=== PATIENT | male | born 1990 | race Caucasian/White ===

== ENCOUNTER 2017-03-26 20:46 | Emergency (ER) | payer OTHER ==
--- NOTE | 2017-03-26 23:12 | ED ORDER SUMMARY ---
..... Patient: MARCELO ALEGRIA OrderSheet [facility] VisitID: [id number] [address] [place] [address] 26y, M Registration Date/Time: 03/26/2017 ORDER SHEET Weight: 95.2 kg Allergies: No Known Drug Allergy GENERAL ORDERS: Foot 3V Left Urgent (22:07 03/26/2017 Brett PATRICK) (Ack 22:12 PWeiler ER Tech1) (22:22 MCampbell) CBC w Diff Urgent (22:07 03/26/2017 Brett PATRICK) (Ack 22:12 PWeiler ER Tech1) (23:12 PWeiler ER Tech1) CMP Urgent (22:07 03/26/2017 Brett PATRICK) (Ack 22:12 PWeiler ER Tech1) (23:12 PWeiler ER Tech1) ESR Urgent (22:07 03/26/2017 Brett PATRICK) (Ack 22:12 PWeiler ER Tech1) (23:12 PWeiler ER Tech1) Uric Acid Urgent (22:07 03/26/2017 Brett PATRICK) (Ack 22:12 PWeiler ER Tech1) (23:12 PWeiler ER Tech1) Post-op Shoe (23:11 03/26/2017 Brett PATRICK) (23:21 BISIowlavelle R.N.) MEDICATION ORDERS: IV FLUIDS: ORDER SHEET NOTES: [Electronically signed by Cheyenne Stafford R.N. (23:23 03/26/2017)] [Electronically signed by Damián Gerber MD (23:39 03/26/2017)] [Electronically locked/signed by Cheyenne Stafford R.N. (23:23 03/26/2017)]
--- NOTE | 2017-03-26 23:12 | ED ORDER SUMMARY ---
..... Patient: MARCELO ALEGRIA OrderSheet [facility] VisitID: [id number] [address] [place] [address] 26y, M Registration Date/Time: 03/26/2017 ORDER SHEET Weight: 95.2 kg Allergies: No Known Drug Allergy GENERAL ORDERS: Foot 3V Left Urgent (22:07 03/26/2017 Brett PATRICK) (Ack 22:12 PWeiler ER Tech1) (22:22 MCampbell) CBC w Diff Urgent (22:07 03/26/2017 Brett PATRICK) (Ack 22:12 PWeiler ER Tech1) (23:12 PWeiler ER Tech1) CMP Urgent (22:07 03/26/2017 Brett PATRICK) (Ack 22:12 PWeiler ER Tech1) (23:12 PWeiler ER Tech1) ESR Urgent (22:07 03/26/2017 Brett PATRICK) (Ack 22:12 PWeiler ER Tech1) (23:12 PWeiler ER Tech1) Uric Acid Urgent (22:07 03/26/2017 Brett PATRICK) (Ack 22:12 PWeiler ER Tech1) (23:12 PWeiler ER Tech1) Post-op Shoe (23:11 03/26/2017 Brett PATRICK) (23:21 BISIowlavelle R.N.) MEDICATION ORDERS: IV FLUIDS: ORDER SHEET NOTES: [Electronically signed by Cheyenne Stafford R.N. (23:23 03/26/2017)] [Electronically signed by Damián Gerber MD (23:39 03/26/2017)] [Electronically locked/signed by Cheyenne Stafford R.N. (23:23 03/26/2017)]
--- NOTE | 2017-03-26 23:12 | ED CLINICAL REPORT ---
Clinical Report - Physicians/Mid Levels [facility] [address] [place] [address] 03/26/2017 20:48 Patient: MARCELO ALEGRIA Time Seen: 21:01. Arrived- By private vehicle. Historian- patient. HISTORY OF PRESENT ILLNESS Chief Complaint: LOWER EXTREMITY PAIN. Severity is described as being severe. It has become recently worse. The quality is noted to be burning and "pain". This started several days ago and is still present and worsening. It was gradual in onset and has been constant. Symptoms located in the area of the left foot. The patient has not had redness. He has had severe swelling of the left foot. He has had severe difficulty walking. Patient denies an injury. REVIEW OF SYSTEMS No chills, fever, sweats, calf pain or chest pain. No cough, difficulty breathing, pedal edema, palpitations or abdominal pain. No constipation, diarrhea, nausea, vomiting or urinary problems. All systems otherwise negative, except as recorded above. SOCIAL HISTORY Current every day light tobacco smoker (cigarette)- less than 1/2 a pack per day. Regular alcohol use. History of drug use: marijuana. FAMILY HISTORY Denies family medical history. ADDITIONAL NOTES The nursing notes have been reviewed. PHYSICAL EXAM Vital Signs: 03/26/2017 20:52 BP: 119/68. HR: 87. RR: 16. O2 saturation: 99%. Temp: 97.5 F. Pain level now: 8/10. Have been reviewed. Appearance: Alert. Eyes: Pupils equal, round and reactive to light. ENT: Pharynx normal. Neck: Neck supple. CVS: Normal heart rate and rhythm. Heart sounds normal. Respiratory: No respiratory distress. Breath sounds normal. Abdomen: Soft and nontender. No organomegaly. Back: Normal inspection. Skin: Skin warm and dry. Normal skin color. Normal skin turgor. Extremities: Left foot: mild erythema and swelling and severe tenderness of the plantar lateral aspect of the foot. Limited weight bearing secondary to pain. Neurovascular intact distally. Extremities otherwise negative. Gait: Gait not tested due to pain. LABS, X-RAYS, AND EKG X-Rays: Left foot negative. The X-rays were independently viewed by me. Laboratory Tests: CBC w Diff: (CHIKI: 03/26/2017 22:17) ( MsgRcvd 03/26/2017 22:56) Final results Test Result Flag Units (Reference) WHITE BLOOD COUNT 7.4 K/uL (4.5-11.5) RED BLOOD COUNT 4.79 M/uL (4.50-5.90) HEMOGLOBIN 14.5 gm/dL (13.5-17.5) HEMATOCRIT 42.5 % (41.0-53.0) MEAN CELL VOLUME 89 fL (80-100) MEAN CORPUSCULAR HGB 30 pg (26-34) MEAN CORPUSCULAR HGB CONC 34 g/dL (31-37) RED CELL DISTRIBUTION WIDTH 12.3 % (11.6-14.8) PLATELET COUNT 231 K/uL (150-400) NEUTROPHIL % 61.4 % (50-75) LYMPH % 29.9 % (25-40) MONO % 6.1 % (3-14) EOSINOPHIL % 2.2 % (0-4) BASOPHIL % 0.4 % (0-2) SED RATE WESTERGREN 4 mm/hr (0-15) CMP: (CHIKI: 03/26/2017 22:17) ( MsgRcvd 03/26/2017 22:49) Final results Test Result Flag Units (Reference) GLUCOSE 88 mg/dL (70-110) BUN 14 mg/dL (7-18) CREATININE 1.0 mg/dL (0.6-1.3) Estimated GFR >60 mL/min Estimated GFR- >60 mL/min Note: Persistent reduction over 3 months in eGFR<60 mL/min/1.73 m2 defines CKD. Patients with eGFR values>=60 mL/min/1.73 m2 may also have CKD if evidence ofpersistent proteinuria. Additional information may be foundat www.kidney.org. SODIUM 143 mmol/L (136-145) POTASSIUM 3.4 L mmol/L (3.5-5.1) CHLORIDE 105 mmol/L (98-107) CARBON DIOXIDE 26 mmol/L (21-32) CALCIUM 8.2 L mg/dL (8.5-10.1) TOTAL PROTEIN 6.8 g/dL (6.4-8.2) ALBUMIN 3.6 g/dL (3.3-5.0) BILIRUBIN, TOTAL 0.3 mg/dL (0.0-1.0) ALKALINE PHOSPHATASE 98 U/L (46-116) AST (SGOT) 22 U/L (15-37) ALT (SGPT) 33 U/L (12-78) URIC ACID 7.5 H mg/dL (2.6-7.2) . CLINICAL IMPRESSION Left foot pain. INSTRUCTIONS Elevate affected areas above chest level. Wear post-op shoe until released. No driving or operating machinery while taking medication. You may walk and bear weight as tolerated. Do not work until released. Warnings: Further evaluation is necessary. GENERAL WARNINGS: Return or contact your physician immediately if your condition worsens or changes unexpectedly, if not improving as expected, or if other problems arise. Prescription Medications: Toradol 10 mg tablets: Take 1 tablet orally every 6 hours as needed. Dispense fifteen (15). No refills. Substitution is permissible. Ultram 50 mg: take 1-2 orally every 6 hours as needed for pain. Dispense fifteen (15). Substitution is permissible. Understanding of the discharge instructions verbalized by patient. Follow-up with: Joe Saleh DPM, Podiatry, , [facility], [address] [place] [address], [address] [address]; Jatin Peña DPM, Podiatry, , [address] [place] [address]. [address], [place] [address] Follow up in five days. Call for the next available appointment. (Electronically signed by Damián Gerber MD 03/26/2017 23:39)
--- NOTE | 2017-03-26 23:12 | ED NURSING NOTES ---
Clinical Report - Nurses [facility] [address] [place] [address] 03/26/2017 20:48 Patient: MARCELO ALEGRIA TRIAGE Triage time 20:52. Acuity: LEVEL 4. Chief Complaint: LEFT LOWER EXTREMITY PAIN. --20:55 TonyaB, R.N. 20:52 03/26/17. BP: 119/68. HR: 87. RR: 16. O2 saturation: 99%. Temp: 97.5 F. Pain level now: 07/10. --20:55 TonyaB, R.N. Weight: 95.2 kg. Height/Length: 69 inches. BMI: 31. --20:54 TonyaB, R.N. Medications None. --23:22 TonyaB, R.N. Allergies No Known Drug Allergy. --23:22 TonyaB, R.N. History Arrived by private vehicle. Historian: patient. No injury occurred. This occurred (3 weeks). 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 PAST MEDICAL HX: Tetanus status: up-to-date. Immunizations: up-to-date. SOCIAL HX: Light tobacco smoker- less than 1/2 a pack per day. Regular alcohol use. History of occasional drug use: marijuana. No infectious disease exposure. SELF HARM ASSESSMENT: A self harm assessment was performed. The patient answered "no" to the question "Have you recently felt down, depressed, or hopeless?", "Have you noticed less interest or pleasure in doing things?", "Do you have thoughts of harming or killing yourself?", "Are you here because you tried to hurt yourself?", "Have you ever tried to hurt yourself before today?", "Have you recently had thoughts about harming or killing others?" and "Do you have any dangerous items in your possession?". FALL RISK ASSESSMENT: Fall risk assessment completed. No fall risk identified. NUTRITIONAL RISK ASSESSMENT: The nutritional risk assessment revealed no deficiencies. FUNCTIONAL ASSESSMENT: Functional assessment: no impairments noted. LEARNING NEEDS ASSESSMENT: The learning needs assessment revealed no barriers. ABUSE ASSESSMENT: Abuse assessment: The patient was asked "Do you feel safe in your home?". SKIN INTEGRITY ASSESSMENT: Skin integrity risk assessment completed. No skin integrity risk identified. --20:55 Cesar Da Silva ( pt states that his left foot and been painful and swelling off and on for a few weeks). --20:56 Cesar Da Silva Interventions ID band on patient. To treatment room. --20:55 Cesar Da Silva PHYSICAL ASSESSMENT Ambulatory to room. GENERAL / NEURO / PSYCH: Oriented X 4. Alert. Appears in no acute distress. EXTREMITIES: Extremity pulses are within normal limits. Neuro-vascular status intact to the extremity. Left big toe: tenderness, swelling and erythema. SKIN: Skin intact. Skin is warm and dry. --20:55 Aubrey Da Silva. NURSING PROGRESS NOTES Patient identifiers checked. Call light placed in reach. Side rails up x 1. Bed placed in lowest position. Brakes of bed on. --20:55 Cesar Da Silva DISPOSITION / DISCHARGE Departure time: 23:22. Condition at departure: improved. No learning barriers present. Discharge instructions provided and reviewed with the patient. Reviewed medication(s) side effects, precautions, dosing and course information. Prescription(s) given to the patient. Reviewed referral to a artificial flowers dyer. Activity restrictions (no driving) reviewed (while taking medication). Work note given. Patient verbalized understanding. Written instructions provided in Tajik. No warning instructions or treatment instructions. The patient was discharged by the physician. He was discharged home. He left the Emergency Department ambulatory and via private vehicle. Patient driving. FALL RISK ASSESSMENT: Fall risk assessment completed. No fall risk identified. --23:22 Cesar Da Silva 23:21 03/26/17. BP: deferred. HR: 18. RR: 74. O2 saturation: 99%. Temp: deferred. Pain level now: 01/10. --23:22 Cesar Da Silva Locked/Released at 03/26/2017 23:23 by Cesar Da Silva
--- NOTE | 2017-03-26 23:12 | ED NURSING NOTES ---
Clinical Report - Nurses [facility] [address] [place] [address] 03/26/2017 20:48 Patient: MARCELO ALEGRIA TRIAGE Triage time 20:52. Acuity: LEVEL 4. Chief Complaint: LEFT LOWER EXTREMITY PAIN. --20:55 TonyaB, R.N. 20:52 03/26/17. BP: 119/68. HR: 87. RR: 16. O2 saturation: 99%. Temp: 97.5 F. Pain level now: 07/10. --20:55 TonyaB, R.N. Weight: 95.2 kg. Height/Length: 69 inches. BMI: 31. --20:54 TonyaB, R.N. Medications None. --23:22 TonyaB, R.N. Allergies No Known Drug Allergy. --23:22 TonyaB, R.N. History Arrived by private vehicle. Historian: patient. No injury occurred. This occurred (3 weeks). 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 PAST MEDICAL HX: Tetanus status: up-to-date. Immunizations: up-to-date. SOCIAL HX: Light tobacco smoker- less than 1/2 a pack per day. Regular alcohol use. History of occasional drug use: marijuana. No infectious disease exposure. SELF HARM ASSESSMENT: A self harm assessment was performed. The patient answered "no" to the question "Have you recently felt down, depressed, or hopeless?", "Have you noticed less interest or pleasure in doing things?", "Do you have thoughts of harming or killing yourself?", "Are you here because you tried to hurt yourself?", "Have you ever tried to hurt yourself before today?", "Have you recently had thoughts about harming or killing others?" and "Do you have any dangerous items in your possession?". FALL RISK ASSESSMENT: Fall risk assessment completed. No fall risk identified. NUTRITIONAL RISK ASSESSMENT: The nutritional risk assessment revealed no deficiencies. FUNCTIONAL ASSESSMENT: Functional assessment: no impairments noted. LEARNING NEEDS ASSESSMENT: The learning needs assessment revealed no barriers. ABUSE ASSESSMENT: Abuse assessment: The patient was asked "Do you feel safe in your home?". SKIN INTEGRITY ASSESSMENT: Skin integrity risk assessment completed. No skin integrity risk identified. --20:55 Cesar Da Silva ( pt states that his left foot and been painful and swelling off and on for a few weeks). --20:56 Cesar Da Silva Interventions ID band on patient. To treatment room. --20:55 Cesar Da Silva PHYSICAL ASSESSMENT Ambulatory to room. GENERAL / NEURO / PSYCH: Oriented X 4. Alert. Appears in no acute distress. EXTREMITIES: Extremity pulses are within normal limits. Neuro-vascular status intact to the extremity. Left big toe: tenderness, swelling and erythema. SKIN: Skin intact. Skin is warm and dry. --20:55 Aubrey Da Silva. NURSING PROGRESS NOTES Patient identifiers checked. Call light placed in reach. Side rails up x 1. Bed placed in lowest position. Brakes of bed on. --20:55 Cesar Da Silva DISPOSITION / DISCHARGE Departure time: 23:22. Condition at departure: improved. No learning barriers present. Discharge instructions provided and reviewed with the patient. Reviewed medication(s) side effects, precautions, dosing and course information. Prescription(s) given to the patient. Reviewed referral to a group worker. Activity restrictions (no driving) reviewed (while taking medication). Work note given. Patient verbalized understanding. Written instructions provided in [place] Zealander. No warning instructions or treatment instructions. The patient was discharged by the physician. He was discharged home. He left the Emergency Department ambulatory and via private vehicle. Patient driving. FALL RISK ASSESSMENT: Fall risk assessment completed. No fall risk identified. --23:22 Cesar Da Silva 23:21 03/26/17. BP: deferred. HR: 18. RR: 74. O2 saturation: 99%. Temp: deferred. Pain level now: 01/10. --23:22 Cesar Da Silva Locked/Released at 03/26/2017 23:23 by Cesar Da Silva
--- NOTE | 2017-03-26 23:12 | ED CLINICAL REPORT ---
Clinical Report - Physicians/Mid Levels [facility] [address] [place] [address] 03/26/2017 20:48 Patient: MARCELO ALEGRIA Time Seen: 21:01. Arrived- By private vehicle. Historian- patient. HISTORY OF PRESENT ILLNESS Chief Complaint: LOWER EXTREMITY PAIN. Severity is described as being severe. It has become recently worse. The quality is noted to be burning and "pain". This started several days ago and is still present and worsening. It was gradual in onset and has been constant. Symptoms located in the area of the left foot. The patient has not had redness. He has had severe swelling of the left foot. He has had severe difficulty walking. Patient denies an injury. REVIEW OF SYSTEMS No chills, fever, sweats, calf pain or chest pain. No cough, difficulty breathing, pedal edema, palpitations or abdominal pain. No constipation, diarrhea, nausea, vomiting or urinary problems. All systems otherwise negative, except as recorded above. SOCIAL HISTORY Current every day light tobacco smoker (cigarette)- less than 1/2 a pack per day. Regular alcohol use. History of drug use: marijuana. FAMILY HISTORY Denies family medical history. ADDITIONAL NOTES The nursing notes have been reviewed. PHYSICAL EXAM Vital Signs: 03/26/2017 20:52 BP: 119/68. HR: 87. RR: 16. O2 saturation: 99%. Temp: 97.5 F. Pain level now: 8/10. Have been reviewed. Appearance: Alert. Eyes: Pupils equal, round and reactive to light. ENT: Pharynx normal. Neck: Neck supple. CVS: Normal heart rate and rhythm. Heart sounds normal. Respiratory: No respiratory distress. Breath sounds normal. Abdomen: Soft and nontender. No organomegaly. Back: Normal inspection. Skin: Skin warm and dry. Normal skin color. Normal skin turgor. Extremities: Left foot: mild erythema and swelling and severe tenderness of the plantar lateral aspect of the foot. Limited weight bearing secondary to pain. Neurovascular intact distally. Extremities otherwise negative. Gait: Gait not tested due to pain. LABS, X-RAYS, AND EKG X-Rays: Left foot negative. The X-rays were independently viewed by me. Laboratory Tests: CBC w Diff: (CHIKI: 03/26/2017 22:17) ( MsgRcvd 03/26/2017 22:56) Final results Test Result Flag Units (Reference) WHITE BLOOD COUNT 7.4 K/uL (4.5-11.5) RED BLOOD COUNT 4.79 M/uL (4.50-5.90) HEMOGLOBIN 14.5 gm/dL (13.5-17.5) HEMATOCRIT 42.5 % (41.0-53.0) MEAN CELL VOLUME 89 fL (80-100) MEAN CORPUSCULAR HGB 30 pg (26-34) MEAN CORPUSCULAR HGB CONC 34 g/dL (31-37) RED CELL DISTRIBUTION WIDTH 12.3 % (11.6-14.8) PLATELET COUNT 231 K/uL (150-400) NEUTROPHIL % 61.4 % (50-75) LYMPH % 29.9 % (25-40) MONO % 6.1 % (3-14) EOSINOPHIL % 2.2 % (0-4) BASOPHIL % 0.4 % (0-2) SED RATE WESTERGREN 4 mm/hr (0-15) CMP: (CHIKI: 03/26/2017 22:17) ( MsgRcvd 03/26/2017 22:49) Final results Test Result Flag Units (Reference) GLUCOSE 88 mg/dL (70-110) BUN 14 mg/dL (7-18) CREATININE 1.0 mg/dL (0.6-1.3) Estimated GFR >60 mL/min Estimated GFR- >60 mL/min Note: Persistent reduction over 3 months in eGFR<60 mL/min/1.73 m2 defines CKD. Patients with eGFR values>=60 mL/min/1.73 m2 may also have CKD if evidence ofpersistent proteinuria. Additional information may be foundat www.kidney.org. SODIUM 143 mmol/L (136-145) POTASSIUM 3.4 L mmol/L (3.5-5.1) CHLORIDE 105 mmol/L (98-107) CARBON DIOXIDE 26 mmol/L (21-32) CALCIUM 8.2 L mg/dL (8.5-10.1) TOTAL PROTEIN 6.8 g/dL (6.4-8.2) ALBUMIN 3.6 g/dL (3.3-5.0) BILIRUBIN, TOTAL 0.3 mg/dL (0.0-1.0) ALKALINE PHOSPHATASE 98 U/L (46-116) AST (SGOT) 22 U/L (15-37) ALT (SGPT) 33 U/L (12-78) URIC ACID 7.5 H mg/dL (2.6-7.2) . CLINICAL IMPRESSION Left foot pain. INSTRUCTIONS Elevate affected areas above chest level. Wear post-op shoe until released. No driving or operating machinery while taking medication. You may walk and bear weight as tolerated. Do not work until released. Warnings: Further evaluation is necessary. GENERAL WARNINGS: Return or contact your physician immediately if your condition worsens or changes unexpectedly, if not improving as expected, or if other problems arise. Prescription Medications: Toradol 10 mg tablets: Take 1 tablet orally every 6 hours as needed. Dispense fifteen (15). No refills. Substitution is permissible. Ultram 50 mg: take 1-2 orally every 6 hours as needed for pain. Dispense fifteen (15). Substitution is permissible. Understanding of the discharge instructions verbalized by patient. Follow-up with: Joe Saleh DPM, Podiatry, , [facility], [address] [place] [address], [address] [address]; Jatin Peña DPM, Podiatry, , [address] [place] [address]. [address], [place] [address] Follow up in five days. Call for the next available appointment. (Electronically signed by Damián Gerber MD 03/26/2017 23:39)
--- NOTE | 2017-03-26 23:39 | ED MED RECONCILIATION SUMMARY ---
Patient: MARCELO ALEGRIA Medication Reconciliation Report [facility] VisitID: [id number] [address] [place] [address] 26y, M Registration Date/Time: 03/26/2017 Weight: 95.2 kg Height/Length: 69 in. BMI: 31.0 ALLERGIES: No Known Drug Allergy The patient's Home Medications are listed below: NONE. The source(s) of the original Home Medication information: Not obtained. The following Medications were given to the patient in the Emergency Department: None. The following Medications were prescribed to the patient: Toradol 10 mg tablets: Take 1 tablet orally every 6 hours as needed. Dispense fifteen (15). No refills. Substitution is permissible. -- Damián Gerber MD Ultram 50 mg: take 1-2 orally every 6 hours as needed for pain. Dispense fifteen (15). Substitution is permissible. -- Damián Gerber MD
--- NOTE | 2017-03-26 23:39 | ED DISCHARGE INSTRUCTIONS ---
Patient: MARCELO ALEGRIA General Instructions [facility] VisitID: [id number] [address] [place] [address] 26y, M Registration Date/Time: 03/26/2017 Left foot pain. INSTRUCTIONS Elevate affected areas above chest level. Wear post-op shoe until released. No driving or operating machinery while taking medication. You may walk and bear weight as tolerated. Do not work until released. Warnings: Further evaluation is necessary. GENERAL WARNINGS: Return or contact your physician immediately if your condition worsens or changes unexpectedly, if not improving as expected, or if other problems arise. Prescription Medications: Toradol 10 mg tablets: Take 1 tablet orally every 6 hours as needed. Dispense fifteen (15). No refills. Substitution is permissible. Ultram 50 mg: take 1-2 orally every 6 hours as needed for pain. Dispense fifteen (15). Substitution is permissible. Understanding of the discharge instructions verbalized by patient. Follow-up with: Joe Saleh DPM, Podiatry, , [facility], [address] [place] [address], [address], [place] [address]; Jatin Peña DPM, Podiatry, [phone], [place] [address] Follow up in five days. Call for the next available appointment. ADDITIONAL INFORMATION Myofascial Pain Syndrome: Fibrositis Your pain is caused by a state of chronic muscle tension. This condition is called by various names: myofascial pain, fibrositis and trigger point pain. This can also be due to mechanical stress (such as working at a computer terminal for long periods; or work that requires repetitive motions of the arms or hands) or emotional stress (such as problems on the job or in your personal life). Sometimes there is no obvious cause. The pain can occur in the area of the muscle spasm or at a site distant to it. For example, spasm of a neck muscle can cause headache. Spasm of the muscle near the shoulder blade can cause pain shooting down the arm. Home Care: Try to identify the factors that may be causing your problem and change them: If you feel thatemotional stressis a cause of your pain, learn methods to deal more effectively with the stress in your life. These may include regular exercise, muscle relaxation techniques, meditation or simply taking time out for yourself. Consult your doctor or go to a local bookstore and review the many books and tapes available on the subject of stress reduction. If you feel that physical stress is a cause for your pain, try to modify any poor work habits. You may use acetaminophen (Tylenol) or ibuprofen (Motrin, Advil) to control pain, unless another medicine was prescribed. [NOTE: If you have chronic liver or kidney disease or ever had a stomach ulcer or GI bleeding, talk with your doctor before using these medicines.] The use of heat to the muscle (hot compress or heating pad) will be helpful to reduce muscle spasm. Some persons get relief with ice packs. Apply an ice pack (crushed or cubed ice in a plastic bag, wrapped in a towel) for 20 minutes at a time as needed. Use the method that feels best to you. Massaging the trigger point and stretching out the muscleare an important parts of prevention and treatment. Trigger point massage can be done by first applying heat to the area to warm and prepare the muscle. Have someone apply steady thumb pressure directly on the knot in the muscle (the most tender point) for 30 seconds. Release the pressure, then massage the surrounding muscle. Repeat the process, applying more pressure to the trigger point each time. Do this up to the limit of pain. With each treatment, the trigger point should become less tender and the pain should decrease. You can apply local pressure to trigger points in the back by lying on the floor with a tennis ball under the trigger point. Follow Up with your doctor as advised or if not improving within the next week. It may be necessary for you to receive physical therapy if you do not respond to home treatment alone. Get Prompt Medical Attention if any of the following occur: If your trigger point is in the chest muscles, observe for pain that becomes more severe, lasts longer, or spreads into your shoulder/arm, neck or back; you develop trouble breathing, sweating, nausea or vomiting in association with chest pain If you develop weakness or numbness in an extremity If your pain worsens, regardless of its location Ketorolac Tromethamine Oral tablet What is this medicine? KETOROLAC (edyta connolly ROLE ak) is a non-steroidal anti-inflammatory drug (NSAID). It is used for a short while to treat moderate to severe pain, including pain after surgery. It should not be used for more than 5 days. How should I use this medicine? Take this medicine by mouth with a full glass of water. Follow the directions on the prescription label. Take your medicine at regular intervals. Do not take your medicine more often than directed. Do not take more than the recommended dose. A special MedGuide will be given to you by the pharmacist with each prescription and refill. Be sure to read this information carefully each time. Talk to your piano technician regarding the use of this medicine in children. While this drug may be prescribed for children as young as 16 years of age for selected conditions, precautions do apply. Patients over 65 years old may have a stronger reaction and need a smaller dose. What side effects may I notice from receiving this medicine? Side effects that you should report to your doctor or health cardiac care unit nurse as soon as possible: allergic reactions like skin rash, itching or hives, swelling of the face, lips, or tongue black or tarry stools breathing problems changes in vision chest pain high blood pressure nausea or vomiting redness, blistering, peeling or loosening of the skin, including inside the mouth severe abdominal pain slurred speech or weakness on one side of the body unexplained weight gain or swelling unusual bleeding or bruising unusually weak or tired yellowing of eyes or skin Side effects that usually do not require medical attention (report to your doctor or health cardiac care unit nurse if they continue or are bothersome): diarrhea dizziness headache heartburn What may interact with this medicine? Do not take this medicine with any of the following medications: aspirin and aspirin-like medicines cidofovir methotrexate NSAIDs, medicines for pain and inflammation, like ibuprofen or naproxen pemetrexed probenecid This medicine may also interact with the following medications: alcohol alendronate alprazolam carbamazepine cyclosporine diuretics flavocoxid fluoxetine ginkgo lithium medicines for high blood pressure like enalapril medicines that affect platelets like pentoxifylline medicines that treat or prevent blood clots like heparin, warfarin muscle relaxants phenytoin steroid medicines like prednisone or cortisone thiothixene What if I miss a dose? If you miss a dose, take it as soon as you can. If it is almost time for your next dose, take only that dose. Do not take double or extra doses. Where should I keep my medicine? Keep out of the reach of children. Store at room temperature between 20 and 25 degrees C (68 and 77 degrees F). Throw away any unused medicine after the expiration date. What should I tell my health care provider before I take this medicine? They need to know if you have any of these conditions: asthma bleeding problems like hemophilia cigarette smoker drink more than 3 alcohol containing drinks a day heart disease or circulation problems such as heart failure or leg edema (fluid retention) high blood pressure kidney disease liver disease stomach bleeding or ulcers an unusual or allergic reaction to ketorolac, aspirin, other NSAIDs, other medicines, foods, dyes, or preservatives or trying to get breast-feeding What should I watch for while using this medicine? Tell your doctor or health cardiac care unit nurse if your pain does not get better. Talk to your doctor before taking another medicine for pain. Do not treat yourself. This medicine does not prevent heart attack or stroke. In fact, this medicine may increase the chance of a heart attack or stroke. The chance may increase with longer use of this medicine and in people who have heart disease. If you take aspirin to prevent heart attack or stroke, talk with your doctor or health cardiac care unit nurse. Do not take medicines such as ibuprofen and naproxen with this medicine. Side effects such as stomach upset, nausea, or ulcers may be more likely to occur. Many medicines available without a prescription should not be taken with this medicine. This medicine can cause ulcers and bleeding in the stomach and intestines at any time during treatment. Do not smoke cigarettes or drink alcohol. These increase irritation to your stomach and can make it more susceptible to damage from this medicine. Ulcers and bleeding can happen without warning symptoms and can cause . You may get drowsy or dizzy. Do not drive, use machinery, or do anything that needs mental alertness until you know how this medicine affects you. Do not stand or sit up quickly, especially if you are an older patient. This reduces the risk of dizzy or fainting spells. This medicine can cause you to bleed more easily. Try to avoid damage to your teeth and gums when you brush or floss your teeth. Tramadol Hydrochloride Oral tablet What is this medicine? TRAMADOL (TRA ma dole) is a pain reliever. It is used to treat moderate to severe pain in adults. How should I use this medicine? Take this medicine by mouth with a full glass of water. Follow the directions on the prescription label. If the medicine upsets your stomach, take it with food or milk. Do not take more medicine than you are told to take. Talk to your piano technician regarding the use of this medicine in children. Special care may be needed. What side effects may I notice from receiving this medicine? Side effects that you should report to your doctor or health cardiac care unit nurse as soon as possible: allergic reactions like skin rash, itching or hives, swelling of the face, lips, or tongue breathing difficulties, wheezing confusion itching light headedness or fainting spells redness, blistering, peeling or loosening of the skin, including inside the mouth seizures Side effects that usually do not require medical attention (report to your doctor or health cardiac care unit nurse if they continue or are bothersome): constipation dizziness drowsiness headache nausea, vomiting What may interact with this medicine? Do not take this medicine with any of the following medications: MAOIs like Carbex, Eldepryl, Marplan, Nardil, and Parnate This medicine may also interact with the following medications: alcohol or medicines that contain alcohol antihistamines benzodiazepines bupropion carbamazepine or oxcarbazepine clozapine cyclobenzaprine digoxin furazolidone linezolid medicines for depression, anxiety, or psychotic disturbances medicines for migraine headache like almotriptan, eletriptan, frovatriptan, naratriptan, rizatriptan, sumatriptan, zolmitriptan medicines for pain like pentazocine, buprenorphine, butorphanol, meperidine, nalbuphine, and propoxyphene medicines for sleep muscle relaxants naltrexone phenobarbital phenothiazines like perphenazine, thioridazine, chlorpromazine, mesoridazine, fluphenazine, prochlorperazine, promazine, and trifluoperazine procarbazine warfarin What if I miss a dose? If you miss a dose, take it as soon as you can. If it is almost time for your next dose, take only that dose. Do not take double or extra doses. Where should I keep my medicine? Keep out of the reach of children. Store at room temperature between 15 and 30 degrees C (59 and 86 degrees F). Keep container tightly closed. Throw away any unused medicine after the expiration date. What should I tell my health care provider before I take this medicine? They need to know if you have any of these conditions: brain tumor depression drug abuse or addiction head injury if you frequently drink alcohol containing drinks kidney disease or trouble passing urine liver disease lung disease, asthma, or breathing problems seizures or epilepsy suicidal thoughts, plans, or attempt; a previous suicide attempt by you or a family member an unusual or allergic reaction to tramadol, codeine, other medicines, foods, dyes, or preservatives or trying to get breast-feeding What should I watch for while using this medicine? Tell your doctor or health cardiac care unit nurse if your pain does not go away, if it gets worse, or if you have new or a different type of pain. You may develop tolerance to the medicine. Tolerance means that you will need a higher dose of the medicine for pain relief. Tolerance is normal and is expected if you take this medicine for a long time. Do not suddenly stop taking your medicine because you may develop a severe reaction. Your body becomes used to the medicine. This does NOT mean you are addicted. Addiction is a behavior related to getting and using a drug for a non-medical reason. If you have pain, you have a medical reason to take pain medicine. Your doctor will tell you how much medicine to take. If your doctor wants you to stop the medicine, the dose will be slowly lowered over time to avoid any side effects. You may get drowsy or dizzy. Do not drive, use machinery, or do anything that needs mental alertness until you know how this medicine affects you. Do not stand or sit up quickly, especially if you are an older patient. This reduces the risk of dizzy or fainting spells. Alcohol can increase or decrease the effects of this medicine. Avoid alcoholic drinks. You may have constipation. Try to have a bowel movement at least every 2 to 3 days. If you do not have a bowel movement for 3 days, call your doctor or health cardiac care unit nurse. Your mouth may get dry. Chewing sugarless gum or sucking hard candy, and drinking plenty of water may help. Contact your doctor if the problem does not go away or is severe. You have been given the following additional information: Myofascial Pain Syndrome Ketorolac Tromethamine Oral tablet Tramadol Hydrochloride Oral tablet No driving or operating machinery while taking medication. You may walk and bear weight as tolerated. Do not work until released. (Electronically signed by Damián Gerber MD 03/26/2017 23:39)
--- NOTE | 2017-03-26 23:39 | ED DISCHARGE INSTRUCTIONS ---
Patient: MARCELO ALEGRIA General Instructions [facility] VisitID: [id number] [address] [place] [place] [address] 26y, M Registration Date/Time: 03/26/2017 Left foot pain. INSTRUCTIONS Elevate affected areas above chest level. Wear post-op shoe until released. No driving or operating machinery while taking medication. You may walk and bear weight as tolerated. Do not work until released. Warnings: Further evaluation is necessary. GENERAL WARNINGS: Return or contact your physician immediately if your condition worsens or changes unexpectedly, if not improving as expected, or if other problems arise. Prescription Medications: Toradol 10 mg tablets: Take 1 tablet orally every 6 hours as needed. Dispense fifteen (15). No refills. Substitution is permissible. Ultram 50 mg: take 1-2 orally every 6 hours as needed for pain. Dispense fifteen (15). Substitution is permissible. Understanding of the discharge instructions verbalized by patient. Follow-up with: Joe Saleh DPM, Podiatry, , [facility], [address] [place] [address], [address], [place] [address]; Jatin Peña DPM, Podiatry, [phone], [place] [address] Follow up in five days. Call for the next available appointment. ADDITIONAL INFORMATION Myofascial Pain Syndrome: Fibrositis Your pain is caused by a state of chronic muscle tension. This condition is called by various names: myofascial pain, fibrositis and trigger point pain. This can also be due to mechanical stress (such as working at a computer terminal for long periods; or work that requires repetitive motions of the arms or hands) or emotional stress (such as problems on the job or in your personal life). Sometimes there is no obvious cause. The pain can occur in the area of the muscle spasm or at a site distant to it. For example, spasm of a neck muscle can cause headache. Spasm of the muscle near the shoulder blade can cause pain shooting down the arm. Home Care: Try to identify the factors that may be causing your problem and change them: If you feel thatemotional stressis a cause of your pain, learn methods to deal more effectively with the stress in your life. These may include regular exercise, muscle relaxation techniques, meditation or simply taking time out for yourself. Consult your doctor or go to a local bookstore and review the many books and tapes available on the subject of stress reduction. If you feel that physical stress is a cause for your pain, try to modify any poor work habits. You may use acetaminophen (Tylenol) or ibuprofen (Motrin, Advil) to control pain, unless another medicine was prescribed. [NOTE: If you have chronic liver or kidney disease or ever had a stomach ulcer or GI bleeding, talk with your doctor before using these medicines.] The use of heat to the muscle (hot compress or heating pad) will be helpful to reduce muscle spasm. Some persons get relief with ice packs. Apply an ice pack (crushed or cubed ice in a plastic bag, wrapped in a towel) for 20 minutes at a time as needed. Use the method that feels best to you. Massaging the trigger point and stretching out the muscleare an important parts of prevention and treatment. Trigger point massage can be done by first applying heat to the area to warm and prepare the muscle. Have someone apply steady thumb pressure directly on the knot in the muscle (the most tender point) for 30 seconds. Release the pressure, then massage the surrounding muscle. Repeat the process, applying more pressure to the trigger point each time. Do this up to the limit of pain. With each treatment, the trigger point should become less tender and the pain should decrease. You can apply local pressure to trigger points in the back by lying on the floor with a tennis ball under the trigger point. Follow Up with your doctor as advised or if not improving within the next week. It may be necessary for you to receive physical therapy if you do not respond to home treatment alone. Get Prompt Medical Attention if any of the following occur: If your trigger point is in the chest muscles, observe for pain that becomes more severe, lasts longer, or spreads into your shoulder/arm, neck or back; you develop trouble breathing, sweating, nausea or vomiting in association with chest pain If you develop weakness or numbness in an extremity If your pain worsens, regardless of its location Ketorolac Tromethamine Oral tablet What is this medicine? KETOROLAC (edyta connolly ROLE ak) is a non-steroidal anti-inflammatory drug (NSAID). It is used for a short while to treat moderate to severe pain, including pain after surgery. It should not be used for more than 5 days. How should I use this medicine? Take this medicine by mouth with a full glass of water. Follow the directions on the prescription label. Take your medicine at regular intervals. Do not take your medicine more often than directed. Do not take more than the recommended dose. A special MedGuide will be given to you by the pharmacist with each prescription and refill. Be sure to read this information carefully each time. Talk to your link trainer mechanic regarding the use of this medicine in children. While this drug may be prescribed for children as young as 16 years of age for selected conditions, precautions do apply. Patients over 65 years old may have a stronger reaction and need a smaller dose. What side effects may I notice from receiving this medicine? Side effects that you should report to your doctor or health home health care coordinator as soon as possible: allergic reactions like skin rash, itching or hives, swelling of the face, lips, or tongue black or tarry stools breathing problems changes in vision chest pain high blood pressure nausea or vomiting redness, blistering, peeling or loosening of the skin, including inside the mouth severe abdominal pain slurred speech or weakness on one side of the body unexplained weight gain or swelling unusual bleeding or bruising unusually weak or tired yellowing of eyes or skin Side effects that usually do not require medical attention (report to your doctor or health home health care coordinator if they continue or are bothersome): diarrhea dizziness headache heartburn What may interact with this medicine? Do not take this medicine with any of the following medications: aspirin and aspirin-like medicines cidofovir methotrexate NSAIDs, medicines for pain and inflammation, like ibuprofen or naproxen pemetrexed probenecid This medicine may also interact with the following medications: alcohol alendronate alprazolam carbamazepine cyclosporine diuretics flavocoxid fluoxetine ginkgo lithium medicines for high blood pressure like enalapril medicines that affect platelets like pentoxifylline medicines that treat or prevent blood clots like heparin, warfarin muscle relaxants phenytoin steroid medicines like prednisone or cortisone thiothixene What if I miss a dose? If you miss a dose, take it as soon as you can. If it is almost time for your next dose, take only that dose. Do not take double or extra doses. Where should I keep my medicine? Keep out of the reach of children. Store at room temperature between 20 and 25 degrees C (68 and 77 degrees F). Throw away any unused medicine after the expiration date. What should I tell my health care provider before I take this medicine? They need to know if you have any of these conditions: asthma bleeding problems like hemophilia cigarette smoker drink more than 3 alcohol containing drinks a day heart disease or circulation problems such as heart failure or leg edema (fluid retention) high blood pressure kidney disease liver disease stomach bleeding or ulcers an unusual or allergic reaction to ketorolac, aspirin, other NSAIDs, other medicines, foods, dyes, or preservatives or trying to get breast-feeding What should I watch for while using this medicine? Tell your doctor or health home health care coordinator if your pain does not get better. Talk to your doctor before taking another medicine for pain. Do not treat yourself. This medicine does not prevent heart attack or stroke. In fact, this medicine may increase the chance of a heart attack or stroke. The chance may increase with longer use of this medicine and in people who have heart disease. If you take aspirin to prevent heart attack or stroke, talk with your doctor or health home health care coordinator. Do not take medicines such as ibuprofen and naproxen with this medicine. Side effects such as stomach upset, nausea, or ulcers may be more likely to occur. Many medicines available without a prescription should not be taken with this medicine. This medicine can cause ulcers and bleeding in the stomach and intestines at any time during treatment. Do not smoke cigarettes or drink alcohol. These increase irritation to your stomach and can make it more susceptible to damage from this medicine. Ulcers and bleeding can happen without warning symptoms and can cause . You may get drowsy or dizzy. Do not drive, use machinery, or do anything that needs mental alertness until you know how this medicine affects you. Do not stand or sit up quickly, especially if you are an older patient. This reduces the risk of dizzy or fainting spells. This medicine can cause you to bleed more easily. Try to avoid damage to your teeth and gums when you brush or floss your teeth. Tramadol Hydrochloride Oral tablet What is this medicine? TRAMADOL (TRA ma dole) is a pain reliever. It is used to treat moderate to severe pain in adults. How should I use this medicine? Take this medicine by mouth with a full glass of water. Follow the directions on the prescription label. If the medicine upsets your stomach, take it with food or milk. Do not take more medicine than you are told to take. Talk to your link trainer mechanic regarding the use of this medicine in children. Special care may be needed. What side effects may I notice from receiving this medicine? Side effects that you should report to your doctor or health home health care coordinator as soon as possible: allergic reactions like skin rash, itching or hives, swelling of the face, lips, or tongue breathing difficulties, wheezing confusion itching light headedness or fainting spells redness, blistering, peeling or loosening of the skin, including inside the mouth seizures Side effects that usually do not require medical attention (report to your doctor or health home health care coordinator if they continue or are bothersome): constipation dizziness drowsiness headache nausea, vomiting What may interact with this medicine? Do not take this medicine with any of the following medications: MAOIs like Carbex, Eldepryl, Marplan, Nardil, and Parnate This medicine may also interact with the following medications: alcohol or medicines that contain alcohol antihistamines benzodiazepines bupropion carbamazepine or oxcarbazepine clozapine cyclobenzaprine digoxin furazolidone linezolid medicines for depression, anxiety, or psychotic disturbances medicines for migraine headache like almotriptan, eletriptan, frovatriptan, naratriptan, rizatriptan, sumatriptan, zolmitriptan medicines for pain like pentazocine, buprenorphine, butorphanol, meperidine, nalbuphine, and propoxyphene medicines for sleep muscle relaxants naltrexone phenobarbital phenothiazines like perphenazine, thioridazine, chlorpromazine, mesoridazine, fluphenazine, prochlorperazine, promazine, and trifluoperazine procarbazine warfarin What if I miss a dose? If you miss a dose, take it as soon as you can. If it is almost time for your next dose, take only that dose. Do not take double or extra doses. Where should I keep my medicine? Keep out of the reach of children. Store at room temperature between 15 and 30 degrees C (59 and 86 degrees F). Keep container tightly closed. Throw away any unused medicine after the expiration date. What should I tell my health care provider before I take this medicine? They need to know if you have any of these conditions: brain tumor depression drug abuse or addiction head injury if you frequently drink alcohol containing drinks kidney disease or trouble passing urine liver disease lung disease, asthma, or breathing problems seizures or epilepsy suicidal thoughts, plans, or attempt; a previous suicide attempt by you or a family member an unusual or allergic reaction to tramadol, codeine, other medicines, foods, dyes, or preservatives or trying to get breast-feeding What should I watch for while using this medicine? Tell your doctor or health home health care coordinator if your pain does not go away, if it gets worse, or if you have new or a different type of pain. You may develop tolerance to the medicine. Tolerance means that you will need a higher dose of the medicine for pain relief. Tolerance is normal and is expected if you take this medicine for a long time. Do not suddenly stop taking your medicine because you may develop a severe reaction. Your body becomes used to the medicine. This does NOT mean you are addicted. Addiction is a behavior related to getting and using a drug for a non-medical reason. If you have pain, you have a medical reason to take pain medicine. Your doctor will tell you how much medicine to take. If your doctor wants you to stop the medicine, the dose will be slowly lowered over time to avoid any side effects. You may get drowsy or dizzy. Do not drive, use machinery, or do anything that needs mental alertness until you know how this medicine affects you. Do not stand or sit up quickly, especially if you are an older patient. This reduces the risk of dizzy or fainting spells. Alcohol can increase or decrease the effects of this medicine. Avoid alcoholic drinks. You may have constipation. Try to have a bowel movement at least every 2 to 3 days. If you do not have a bowel movement for 3 days, call your doctor or health home health care coordinator. Your mouth may get dry. Chewing sugarless gum or sucking hard candy, and drinking plenty of water may help. Contact your doctor if the problem does not go away or is severe. You have been given the following additional information: Myofascial Pain Syndrome Ketorolac Tromethamine Oral tablet Tramadol Hydrochloride Oral tablet No driving or operating machinery while taking medication. You may walk and bear weight as tolerated. Do not work until released. (Electronically signed by Damián Gerber MD 03/26/2017 23:39)
--- NOTE | 2017-03-26 23:39 | ED MAR SUMMARY ---
..... Medication Administration Record [facility] [address] [place], [place] [id number] Patient: MARCELO ALEGRIA Visit ID: [id number] 26y, M Weight: 95.2 kg Height/Length: 69 in BMI: 31 ALLERGIES: No Known Drug Allergy
--- NOTE | 2017-03-26 23:39 | ED MAR SUMMARY ---
..... Medication Administration Record [facility] [address] [place], [place] [id number] Patient: MARCELO ALEGRIA Visit ID: [id number] 26y, M Weight: 95.2 kg Height/Length: 69 in BMI: 31 ALLERGIES: No Known Drug Allergy
--- NOTE | 2017-03-26 23:39 | ED MED RECONCILIATION SUMMARY ---
Patient: MARCELO ALEGRIA Medication Reconciliation Report [facility] VisitID: [id number] [address] [place] [address] 26y, M Registration Date/Time: 03/26/2017 Weight: 95.2 kg Height/Length: 69 in. BMI: 31.0 ALLERGIES: No Known Drug Allergy The patient's Home Medications are listed below: NONE. The source(s) of the original Home Medication information: Not obtained. The following Medications were given to the patient in the Emergency Department: None. The following Medications were prescribed to the patient: Toradol 10 mg tablets: Take 1 tablet orally every 6 hours as needed. Dispense fifteen (15). No refills. Substitution is permissible. -- Damián Gerber MD Ultram 50 mg: take 1-2 orally every 6 hours as needed for pain. Dispense fifteen (15). Substitution is permissible. -- Damián Gerber MD
--- NOTE | 2017-03-27 07:07 | DIAGNOSTIC IMAGING REPORT ---
PROCEDURE: XR FOOT 3 VIEWS - LEFT INDICATION: PAIN TECHNIQUE: Three views of the left foot. COMPARISON: None. FINDINGS: Normal mineralization. No fractures. Normal osseous alignment. No suspicious soft-tissue calcification or radiodense foreign bodies. No soft tissue gas IMPRESSION: 1. Normal left foot.
== END 2017-03-26 23:23 | disposition home or self-care (01) ==
LOC: ED SRH 20:46
DX: M79.672 Pain in left foot (principal); F17.219 Nicotine dependence, cigarettes, with unspecified nicotine-induced disorders